=== PATIENT | female | born 1970 | race African-American/Black ===

== ENCOUNTER → 2017-07-06 | Outpatient (CLI) | payer OTHER, MEDICAID ==
[~2017-07-06] MED LIST: ALEVE220 M1 PO; BENTYL 20 MG TA20 M1 PO; CLARITIN10 MG PO; ERGOCALCIF50000 UNIT PO; FELDENE20 MG PO; FLEXERIL PO; FLONASE 0.05%50 MCG NASAL; HYDROCODONE-AP1 EAC6 PO; NORVASC5 MG PO; SIMVASTATIN40 MG PO; TESSALON PERLE100 MG PO; VENTOLIN HFA 1818 GM INH; ZANTAC 150MG T150 MG PO; ZESTORETIC 20-1 EAC1 PO
[2017-07-06 11:32] LABS: POTASSIUM 3.7 mmol/L (3.5-5.1)
== END ==
LOC: M.LAB 07:33
PROVIDERS: Anesthesiology
DX: Z01.818 Encounter for other preprocedural examination (principal); E11.9 Type 2 diabetes mellitus without complications

== ENCOUNTER → 2017-07-11 | Day surgery (SDC) | payer OTHER, MEDICAID ==
[2017-07-11 10:46] LABS: HEMATOCRIT 36.8 % (37.0-47.0); HEMOGLOBIN 12.2 gm/dL (12.0-15.0); MCH 24.2 pg (26.0-34.0); MCHC 33.2 g/dL (28.0-37.0); MCV 72.8 fL (80.0-100.0); MPV 7.7 fl. (7.2-11.1); RBC 5.06 mil/uL (4.20-5.00); RDW-CV 15.3 % (10.5-14.5); WBC 7.3 thou/uL (4.0-11.0)
[2017-07-11 10:53] LABS: CREATININE 0.9 mg/dL (0.6-1.3); POTASSIUM 3.9 mmol/L (3.5-5.1)
--- NOTE | 2017-07-11 14:43 | EKG ---
[place] [address] ELECTROCARDIOGRAM REPORT Name: CATERINA PAEZ Room: [facility]#: [id number] Admission: 07/11/17 Attend Phys: Doug Barnes II Discharge: Date of : 70 Report #: [id number] THIS REPORT FOR: //name// [facility] Test Date: 2017-07-11 Test Time: 11:14:13 Pat Name: CATERINA PAEZ Department: Room: Gender: F Client Support Representative: : 1970 Requested By: Stevie Fernandez Order Number: [id number] Reading MD: Telly Liu Measurements Intervals [place] Rate: 64 P: -4 NH: 141 QRS: 11 QRSD: 91 T: 35 QT: 411 QTc: 424 Interpretive Statements Sinus rhythm No previous ECG available for comparison Electronically Signed On 07-11-2017 14:43:46 [employer] by Telly Liu [email or web address] <ELECTRONICALLY SIGNED> By: Telly Liu MD, [facility] 07/11/17 1443 1114 1114 Telly Liu MD, FACC /EPI
--- NOTE | 2017-07-18 11:42 | OP ---
[facility] [address] [place] [address] OPERATIVE REPORT Name: CATERINA PAEZ Room: [facility]#: [id number] Admission: 07/11/17 Attend Phys: Doug Barnes II Discharge: Date of : 70 Report #: [id number] THIS REPORT FOR: //name// CC: [facility] physician/PCP Doug Barnes DATE OF SERVICE: 07/11/2017 PREOPERATIVE DIAGNOSIS: Right knee lateral tracking patella. POSTOPERATIVE DIAGNOSES: 1. Right knee lateral tracking patella. 2. Lateral meniscus tear. 3. 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 PROCEDURES PERFORMED: 1. Right knee arthroscopic surgery with lateral release. 2. Partial lateral meniscectomy. 3. Abrasion chondroplasty of medial femoral condyle and patellofemoral groove. SURGEON: Doug Barnes II, DO. ROUNDHOUSE FIRER/FIREMAN: SHEEBA Pickett. ANESTHESIA: Per operative record. ESTIMATED BLOOD LOSS: Minimal. ANTIBIOTICS: Per operative record. DRAINS: None. COMPLICATIONS: None. CONDITION: Stable to recovery room. DESCRIPTION OF PROCEDURE: The patient was taken to the operative suite and placed supine on the operating table and given appropriate anesthesia. The patient's affected lower extremity was sterilely prepped and draped in a well-padded knee arthroscopic waller. Surgery began by medial and lateral portal incision. The arthroscope was advanced in the joint. There was found to be a lateral meniscus tear, which was extending around the lateral margin. It was debrided utilizing shaver back to good stable margins. The medial meniscus did have mild degeneration, but no evidence of tears. There was noted to be a significant lateral tilt and lateral translation of the patella. Utilizing cautery, lateral release was performed over the lateral [place] [address] OPERATIVE REPORT Name: CATERINA PAEZ Room: [facility]#: [id number] Admission: 07/11/17 Attend Phys: Doug Barnes II Discharge: Date of : 70 Report #: [id number] allow for decreased tilt and improved alignment. There was also shown to be grade 3 chondromalacia along the medial femoral condyle. Utilizing a shaver, an abrasion chondroplasty was performed of the medial femoral condyle down to the bleeding bone. This had been smoothed utilizing the Coblation wand in an appropriate fashion. Patellofemoral femoral groove was also debrided along the anterior aspect, where there was grade 3 chondromalacia, down to bleeding bone utilizing a shaver, with performed. Final irrigation of the knee was then informed. It was then closed with 4-0 nylon in simple fashion. Dermabond sterile dressing was applied. The patient was transported to the recovery room in stable condition. Counts were correct throughout the procedure. <ELECTRONICALLY SIGNED> By: Doug Barnes II, DO 07/18/17 1142 0825 [id number] Barnes II, DO /nt
== END | disposition home or self-care (01) ==
LOC: M.SUR 10:12
PROVIDERS: Student in an Organized Health Care Education/Training Program
DX: M22.8X1 Other disorders of patella, right knee (principal); S83.281A Other tear of lateral meniscus, current injury, right knee, initial encounter; M94.261 Chondromalacia, right knee; Z79.899 Other long term (current) drug therapy; Z79.891 Long term (current) use of opiate analgesic; X58.XXXA Exposure to other specified factors, initial encounter; Y93.89 Activity, other specified; Y92.89 Other specified places as the place of occurrence of the external cause; Y99.8 Other external cause status